=== PATIENT | male | born 1960 | race Caucasian/White ===

== ENCOUNTER → 2022-04-07 | Day surgery (SDC) | payer BC | LOC: MSO 08:34 | DX: Z12.11 Encounter for screening for malignant neoplasm of colon (principal); K57.30 Diverticulosis of large intestine without perforation or abscess without bleeding; D12.0 Benign neoplasm of cecum | CPT/HCPCS: 00811; J2704; J7120 ==

== ENCOUNTER 2022-09-24 07:49 | Outpatient (RCR) | payer BC | END 2022-10-24 | disposition home or self-care (01) | LOC: PT | DX: M17.0 Bilateral primary osteoarthritis of knee (principal) ==

== ENCOUNTER → 2023-05-20 | Outpatient (CLI) | payer BC ==
[2023-05-20 12:04] LABS: D-DIMER 0.94 mg/L FEU (0.15-0.50)
== END ==
LOC: LAB 10:50
PROVIDERS: Family Medicine
DX: R07.9 Chest pain, unspecified (principal); Z98.890 Other specified postprocedural states
CPT/HCPCS: Q9967